=== PATIENT | male | born 1965 | race Two or more races ===

== ENCOUNTER → 2017-11-21 10:32 | Outpatient (CLI) | payer OTHER | END | disposition home or self-care (01) | LOC: LAB 10:32 | DX: Z11.3 Encounter for screening for infections with a predominantly sexual mode of transmission (principal) ==

== ENCOUNTER 2019-12-17 15:41 | Outpatient (CLI) | payer OTHER | END 2019-12-17 15:52 | disposition home or self-care (01) | LOC: RAD 15:41 | PROVIDERS: ATTEND General Practice | DX: M79.662 Pain in left lower leg (principal); M79.81 Nontraumatic hematoma of soft tissue ==

== ENCOUNTER 2019-12-18 10:00 | Outpatient (CLI) | payer OTHER | END 2019-12-18 10:13 | disposition home or self-care (01) | LOC: NUCLEAR 10:00 | PROVIDERS: ATTEND General Practice | DX: M79.662 Pain in left lower leg (principal); M79.81 Nontraumatic hematoma of soft tissue; I87.2 Venous insufficiency (chronic) (peripheral) ==

== ENCOUNTER 2019-12-18 13:08 | Emergency (ER) | payer OTHER ==
[~2019-12-18] VITALS: Ht 175.3 cm; Wt 85.3 kg
== END 2019-12-18 16:24 | disposition home or self-care (01) ==
LOC: ER 13:08
DX: I82.492 Acute embolism and thrombosis of other specified deep vein of left lower extremity (principal); M79.662 Pain in left lower leg; S80.12XS Contusion of left lower leg, sequela; X58.XXXS Exposure to other specified factors, sequela

== ENCOUNTER 2022-06-15 08:44 | Outpatient (CLI) | payer OTHER ==
[~2022-06-15 08:44] MED LIST: CIPRO500 MG PO; FLAGYL500MG PO; FLONASE16 GM NS; INTESTINEX680 MG PO; ZANTAC150 MG PO; ZYRTEC10 MG PO
== END 2022-06-15 08:52 | disposition home or self-care (01) ==
LOC: LAB 08:44
PROVIDERS: ATTEND Internal Medicine Cardiovascular Disease
DX: E03.9 Hypothyroidism, unspecified (principal); I10 Essential (primary) hypertension; E11.9 Type 2 diabetes mellitus without complications; E78.2 Mixed hyperlipidemia; E55.9 Vitamin D deficiency, unspecified; N40.0 Benign prostatic hyperplasia without lower urinary tract symptoms; I25.10 Atherosclerotic heart disease of native coronary artery without angina pectoris

== ENCOUNTER 2022-07-02 08:35 | Outpatient (CLI) | payer OTHER | END 2022-07-02 09:01 | disposition home or self-care (01) | LOC: LAB 08:35 | PROVIDERS: ATTEND Internal Medicine | DX: U07.1 COVID-19 (principal) ==

== ENCOUNTER 2022-07-05 08:10 | Outpatient (CLI) | payer OTHER | END 2022-07-05 08:15 | disposition home or self-care (01) | LOC: NUCLEAR 08:10 | PROVIDERS: ATTEND Internal Medicine Cardiovascular Disease | DX: I10 Essential (primary) hypertension (principal); R07.9 Chest pain, unspecified ==

== ENCOUNTER 2022-08-11 07:53 | Outpatient (CLI) | payer OTHER | END 2022-08-11 14:17 | disposition home or self-care (01) | LOC: LAB 07:53 | PROVIDERS: ATTEND Internal Medicine Cardiovascular Disease | DX: E78.2 Mixed hyperlipidemia (principal); E11.9 Type 2 diabetes mellitus without complications ==

== ENCOUNTER 2024-11-12 09:30 | Outpatient (CLI) | payer OTHER ==
[2024-11-13 09:08] LABS: HEPATITIS A ANTIBODY IGG Negative (Negative); HEPATITIS B SURFACE ANTIBODY Non Reactive (.); HEPATITIS C VIRUS ANTIBODY Non Reactive (Non Reactive)
== END 2024-11-12 09:38 | disposition home or self-care (01) ==
LOC: LAB 09:30
DX: A64 Unspecified sexually transmitted disease (principal); B19.9 Unspecified viral hepatitis without hepatic coma